=== PATIENT | female | born 1995 | race Hispanic/Latino ===

== ENCOUNTER 2017-12-01 08:52 | Emergency (ER) | payer OTHER ==
[2017-12-01 09:05] VITALS: BMI 33.3
[2017-12-01 09:17] VITALS: BP 131/93; PULSE 86; RESP 18; TEMP 99.2; O2SAT 98
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
== END 2017-12-01 09:43 | disposition home or self-care (01) ==
LOC: ED 08:52
DX: S39.012A Strain of muscle, fascia and tendon of lower back, initial encounter (principal); V49.9XXA Car occupant (driver) (passenger) injured in unspecified traffic accident, initial encounter

== ENCOUNTER 2017-12-04 08:04 | Emergency (ER) | payer OTHER ==
[2017-12-04 08:04] VITALS: BMI 33.3
[2017-12-04 08:42] VITALS: RESP 16; TEMP 98.2
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
[2017-12-04 12:47] VITALS: BP 125/78; PULSE 80; O2SAT 100
== END 2017-12-04 11:45 | disposition home or self-care (01) ==
LOC: ED 08:04
DX: S16.1XXA Strain of muscle, fascia and tendon at neck level, initial encounter (principal); S39.012A Strain of muscle, fascia and tendon of lower back, initial encounter; V49.59XA Passenger injured in collision with other motor vehicles in traffic accident, initial encounter; Y92.410 Unspecified street and highway as the place of occurrence of the external cause